=== PATIENT | female | born 1935 | race Two or more races ===

== ENCOUNTER 2024-08-09 16:48 | Emergency (ER) | payer MEDICARE, SELFPAY ==
[2024-08-09 16:55] VITALS: BP 155/72; PULSE 93; TEMP 36.9; O2SAT 98; BMI 24.8
--- NOTE | 2024-08-09 17:23 | XR_ITS ---
The [address] [address] Patient Name: DERRELL REDDY MRN: [id number] date: 1935 Sex: F Assigned Patient Location: ER Current Patient Location: Accession/Order Number: [id number] Exam Date: 08/09/2024 17:52 Report Date: 08/09/2024 19:49 At the request of: JACK QUINONES Procedure: XR chest 1V CXR HISTORY: Shortness of breath. COMPARISON: None. TECHNIQUE: 1 view of the chest submitted for review. FINDINGS: Lines and tubes: None Lungs are hyperaerated. No acute infiltrate. There is trace blunting of the left costophrenic angle. The cardiac silhouette measures within normal. Pulmonary vascularity is unremarkable. Osseous structures demonstrate postoperative changes of the right humerus. XR/XR chest 1V IMPRESSION: 1. Hyperexpanded lungs. Please correlate for COPD. 2. Blunting of the left costophrenic angle. Please correlate for small pleural effusion Electronically authenticated by: JCARLOS JAIN Date: 08/09/2024 19:49
--- NOTE | 2024-08-09 17:23 | ECG_ITS ---
The [facility] Test Date: 2024-08-09 Pat Name: DERRELL REDDY Department: Room: - Gender: Female [employer]agger: : 1935 Requested By: Order Number: [id number] Reading MD: SAGE QUINTANA Measurements Intervals [place] Rate: 87 P: 64 MO: 170 QRS: 47 QRSD: 66 T: 77 QT: 332 QTc: 377 Interpretive Statements 1100 Sinus rhythm 8102 Low QRS voltage in chest leads 9120 atypical ECG No previous ECG available for comparison Electronically Signed On 08-10-2024 7:43:10 EST by SAGE QUINTANA
[2024-08-09 17:34] LABS: Basophils Absolute Auto 0.1 10^3/uL (0.0-0.1); Basophils Percent Auto 0.8 % (0.2-2.0); Eosinophils Absolute Auto 0.2 10^3/uL (0.0-0.7); Eosinophils Percent Auto 2.4 % (0.9-7.0); Hematocrit 39.6 % (36.0-48.0); Hemoglobin 13.2 g/dL (12.0-16.0); Immature Granulocytes Abs Auto 0.03 10^3/uL (0.00-0.03); Immature Granulocytes Pct Auto 0.3 % (0.0-0.5); Lymphocytes Absolute Auto 1.9 10^3/uL (1.2-3.8); Lymphocytes Percent Auto 20.4 % (20.5-60.0); Mean Corpuscular HGB Conc 33.3 g/dL (29.9-35.2); Mean Corpuscular Hemoglobin 32.8 pg (26.7-34.0); Mean Corpuscular Volume 98.3 fL (81.0-99.0); Mean Platelet Volume 9.7 fL (9.5-13.5); Monocytes Absolute Auto 0.7 10^3/uL (0.3-0.8); Monocytes Percent Auto 7.5 % (1.7-12.0); Neutrophils Absolute Auto 6.5 10^3/uL (1.4-6.5); Neutrophils Percent Auto 68.6 % (43.0-75.0); Platelet Count 338 10^3/uL (150-450); Red Blood Count 4.03 10^6/uL (4.20-5.40); Red Cell Distribution Width 12.5 % (11.0-15.0); White Blood Count 9.5 10^3/uL (4.0-11.0)
[2024-08-09 17:45] LABS: Acetone NEGATIVE (NEGATIVE)
[2024-08-09 17:47] LABS: Alanine Aminotransferase 27 U/L (14-59); Albumin Globulin Ratio 1.1; Albumin Level 3.9 g/dL (3.4-5.0); Alkaline Phosphatase 81 U/L (46-116); Anion Gap 12.5; Aspartate Amino Transferase 15 U/L (15-37); BUN Creatinine Ratio 15.4; Bilirubin Total 0.2 mg/dL (0.2-1.0); Calcium 9.5 mg/dL (8.5-10.1); Carbon Dioxide 29.8 mmol/L (21.0-32.0); Chloride 104 mmol/L (98-107); Estimated GFR (African America 28 (>=60 mL/min/1.73m^2); Estimated GFR (Non-African Ame 23 (>=60 mL/min/1.73m^2); Globulin 3.4 g/dL; Glucose 161 mg/dL (74-106); Magnesium 2.2 mg/dL (1.8-2.4); Potassium 4.3 mmol/L (3.5-5.1); Sodium 142 mmol/L (136-145); Total Protein 7.3 g/dL (6.4-8.2)
[2024-08-09 17:48] LABS: Bilirubin Urine NEGATIVE (NEGATIVE); Blood Urine NEGATIVE (NEGATIVE); Clarity Urine CLEAR (CLEAR); Color Urine LT. YELLOW (YELLOW); Glucose Urine UA NEGATIVE (NEGATIVE); Ketones Urine NEGATIVE (NEGATIVE); Leukocyte Esterase Urine NEGATIVE (NEGATIVE); Nitrite Urine NEGATIVE (NEGATIVE); Protein Urine NEGATIVE (NEG/TRACE); Specific Gravity Urine <=1.005 (1.005-1.025); Urobilinogen Urine 0.2 EU/dL (0.2-1.0)
[2024-08-09] MEDS: HYDROXYZINE PAMOATE 25 MG CAPSULE PO (17:48)
[2024-08-09 17:49] VITALS: PULSE 88
--- NOTE | 2024-08-09 17:53 | ED_ITS ---
HPI HPI - General Adult General Chief complaint: Urogenital-Female Stated complaint: HIGH BLOOD SUGAR Time Seen by Provider: 08/09/24 16:55 Source: patient and family Mode of arrival: walk-in Limitations: no limitations History of Present Illness HPI narrative: 89-year-old female presents to the emergency department with daughters with concern about urinary tract infection. She was diagnosed with 1 by her provider and took 3-day course of antibiotics. Patient has been extremely anxious lately, has not slept in the past couple days due to worrying about her blood sugar levels. States her blood sugar has been as high as 201. Patient states she can feel when her blood sugar is elevating. She is on Januvia. Feels symptoms in her head. Has had increased urination, thirst. Ketones have been noticed in her urine. She has had some intermittent abdominal discomfort, none now. Complains of some shortness of breath, but attributes this to the anxiety she is feeling. She does take 0.5 mg of lorazepam as needed for anxiety, but states that this has not been helping. Denies any fever, chills, nausea, vomiting, chest pain, back pain, dysuria. Quality:?as above Severity:?moderate Timing:?as above, worsening Context: Normal setting and activity? Modifying factors:?none Associated symptoms: as above Related Data Home Medications ?Medication ?Instructions ?Recorded ?Confirmed amlodipine 5 mg tablet 5 mg PO DAILY 08/09/24 08/09/24 ashwagandha extract 120 mg capsule mg PO 08/09/24 aspirin 81 mg capsule 81 mg PO DAILY 08/09/24 08/09/24 cyanocobalamin (B12)-cobamamide argenis sublingual 08/09/24 5,000 mcg-100 mcg sublingual lozenge (B12) furosemide 40 mg tablet 40 mg PO DAILY 08/09/24 08/09/24 latanoprost 0.005 % eye drops 1 drp ophthalmic (eye) DAILY 08/09/24 08/09/24 lorazepam 0.5 mg tablet 0.5 mg PO Q8H PRN anxiety 08/09/24 08/09/24 melatonin 5 mg capsule mg 08/09/24 metoclopramide HCl 10 mg tablet 10 mg PO BID 08/09/24 08/09/24 rosuvastatin 10 mg tablet 10 mg PO DAILY 08/09/24 08/09/24 sitagliptin phosphate 50 mg tablet 50 mg PO DAILY 08/09/24 08/09/24 (Januvia) tizanidine 2 mg tablet 2 mg PO DAILY PRN muscle spasticity 08/09/24 08/09/24 Previous Rx's ?Medication ?Instructions ?Recorded hydroxyzine HCl 25 mg tablet 25 mg PO BID PRN anxiety #10 tabs 08/09/24 Allergies Allergy/AdvReac Type Severity Reaction Status Date / Time No Known Drug Allergies Allergy Verified 08/09/24 17:00 Opioid HPI Opioid Management Most Recent Opioid Data: No Data to Display Review of Systems ROS Narrative CONST: Denies fever, chills RESP: + shortness of breath with anxiety. Denies cough CV: Denies chest pain, palpitations GI: + intermittent abd pain, mid. Denies abd pain currently, nausea, vomiting : + urinary frequency. Denies dysuria, flank pain MS: Denies back pain, myalgias SKIN: Denies color change, rash NEURO: Denies numbness, weakness PSYCHIATRIC: + anxious, not sleeping. ENDO: + polyuria, polydipsia PFSH PFSH Social History Little interest or pleasure in doing things: nearly every day Feeling down, depressed, or hopeless: nearly every day Exam Narrative Exam Narrative: Vital signs reviewed Nurses notes noted CONST: Nontoxic, well appearing, well nourished, in no distress.? No diaphoresis.?? HENT: normocephalic, atraumatic, moist mucous membrane, no abnormalities of the nose noted, hearing normal EYES: normal appearing conjunctiva, no apparent discharge bilat NECK: normal appearance CV: normal rate, regular rhythm, no murmur RESP: normal effort, speaking in complete sentences. Lung sounds clear and equal bilat.? No wheezes, rales, rhonchi GI: normal bowel sounds, soft, no distension, nontender : no CVA tenderness MS: no edema, tenderness SKIN: no pallor NEURO: A&Ox 3, no focal findings PSYCH: + very anxious Constitutional Vital Signs, click to edit/add: Last Vital Signs Temp 98.4 F 08/09/24 16:55 Pulse 93 H 08/09/24 16:55 Resp 18 08/09/24 16:55 BP 155/72 H 08/09/24 16:55 Pulse Ox 98 08/09/24 16:55 O2 Del Method Room Air 08/09/24 16:55 Course Reevaluation(s) Reevaluation #1: Reports improvement of her anxiety. Discussed, at length with patient and daughters results, plan, and disposition. They are agreeable. Time: 19:03 Vital Signs Vital signs: Vital Signs Temperature 98.4 F 08/09/24 16:55 Pulse Rate 93 H 08/09/24 16:55 Respiratory Rate 18 08/09/24 16:55 Blood Pressure 155/72 H 08/09/24 16:55 Pulse Oximetry 98 08/09/24 16:55 Oxygen Delivery Method Room Air 08/09/24 16:55 Temperature 98.4 F 08/09/24 16:55 Pulse Rate 93 H 08/09/24 16:55 Respiratory Rate 18 08/09/24 16:55 Blood Pressure 155/72 H 08/09/24 16:55 Pulse Oximetry 98 08/09/24 16:55 Oxygen Delivery Method Room Air 08/09/24 16:55 Medical Decision Making MDM Narrative Medical decision making narrative: This is a pleasant 89-year-old female who presented to the emergency department with her daughters with concern about urinary tract infection, elevated blood sugars, anxiety, inability to sleep. She has been experiencing all of this over the past couple weeks. Has been on a 3-day course of antibiotics, but worries it was elevating her blood sugar. Daughters report highest her blood sugar had been was 201. She has had some increased thirst, urination. Denies any dysuria, chest pain, abdominal pain, headaches, dizziness. On arrival, a broad, stable. Exam, nontoxic, anxious appearing patient in no gross distress. Heart regular rate and rhythm. Lung sounds clear and equal bilaterally. Abdomen soft, nontender. IV access established, bloods drawn, patient was given some fluids. EKG performed which showed no acute or concerning changes Labs reveal no leukocytosis, anemia, thrombocytopenia, electrolyte imbalance. BUN 31, creatinine 2.01. Daughter had records from [facility] on her phone that showed BUN of 34 and creatinine up to 2.04 on 07/14/2024. Glucose today was 161. Bicarb 29. Negative for acetone. Urinalysis shows no evidence of glucose, ketones, infection, hematuria. Patient was given dose of hy droxyzine with overall improvement of her symptoms. Results and plan were discussed, at length with patient and daughters. This included creating a restful setting, dark room, avoiding television, possibly white noise, background music. They have follow-up appointment with their provider on Sunday. She will discuss this further with her follow-up provider as well as her elevated blood sugars. She also adds that she has been experiencing restless legs which will be addressed as well. Favor hyperglycemia, anxiety Acidosis, urinary tract infection less likely based on laboratory testing History and record review Discussion with independent historian: Daughters Additional records reviewed: Prior labs, see MDM narrative above Additional tests and interventions ECG: See below Reevaluation: See ED course above Disposition The patient was discharged. Plan: Patient will be discharged to home. Condition at time of disposition: stable Prescription for hydroxyzine sent to pharmacy Advised to follow up with primary provider. Advised to return for any worsening and/or development of new, concerning signs or symptoms PLEASE NOTE: Portions of the medical record may have been produced using electronic renal medicine physician and may contain errors with respect to translation of words which may not have been identified prior to finalization of the chart. Addendum on 08/09/2024 at 1936 hrs.: After discharge, nurse noticed that patient was given hydralazine instead of hydroxyzine. It had been ordered as hydralazine inadvertently. Upon discovery, patient was immediately called and voicemail message left. We then called the secondary number and spoke with both daughters. They have a blood pressure machine at home and they will monitor blood pressure. They are offered to return to the emergency department where we would monitor her blood pressure over the next couple hours. They declined this and stated that they will monitor her at home. They were instructed not to give any muscle relaxants or lorazepam over the next several hours. They are to return for such signs, symptoms including, but not limited to lightheadedness, presyncope, systolic blood pressures less than 100?110. They expressed understanding of this. Medical Records Medical records reviewed: Yes I reviewed the patient's medical records (See MDM narrative) Lab Data Lab results reviewed: Yes I reviewed the patient's lab results Labs: Lab Results 08/09/24 08/09/24 Range/Units 17:06 17:26 WBC 9.5 (4.0-11.0) 10^3/uL RBC 4.03 L (4.20-5.40) 10^6/uL Hgb 13.2 (12.0-16.0) g/dL Hct 39.6 (36.0-48.0) % MCV 98.3 (81.0-99.0) fL MCH 32.8 (26.7-34.0) pg MCHC 33.3 (29.9-35.2) g/dL RDW 12.5 (11.0-15.0) % Plt Count 338 (150-450) 10^3/uL MPV 9.7 (9.5-13.5) fL Neut % (Auto) 68.6 (43.0-75.0) % Lymph % (Auto) 20.4 L (20.5-60.0) % [place] % (Auto) 7.5 (1.7-12.0) % Eos % (Auto) 2.4 (0.9-7.0) % Baso % (Auto) 0.8 (0.2-2.0) % Neut # (Auto) 6.5 (1.4-6.5) 10^3/uL Lymph # (Auto) 1.9 (1.2-3.8) 10^3/uL [place] # (Auto) 0.7 (0.3-0.8) 10^3/uL Eos # (Auto) 0.2 (0.0-0.7) 10^3/uL Baso # (Auto) 0.1 (0.0-0.1) 10^3/uL Abs Immat Gran (auto) 0.03 (0.00-0.03) 10^3/uL Imm/Tot Granulo (auto) 0.3 (0.0-0.5) % Sodium 142 (136-145) mmol/L Potassium 4.3 (3.5-5.1) mmol/L Chloride 104 (98-107) mmol/L Carbon Dioxide 29.8 (21.0-32.0) mmol/L Anion Gap 12.5 BUN 31.0 H (7.0-18.0) mg/dL Creatinine 2.01 H (0.55-1.02) mg/dL Est GFR ( Amer) 28 L (>=60 mL/min/1.73m^2) Est GFR (Non-Af Amer) 23 L (>=60 mL/min/1.73m^2) BUN/Creatinine Ratio 15.4 Glucose 161 H (74-106) mg/dL Calcium 9.5 (8.5-10.1) mg/dL Magnesium 2.2 (1.8-2.4) mg/dL Total Bilirubin 0.2 (0.2-1.0) mg/dL AST 15 (15-37) U/L ALT 27 (14-59) U/L Alkaline Phosphatase 81 (46-116) U/L Total Protein 7.3 (6.4-8.2) g/dL Albumin 3.9 (3.4-5.0) g/dL Globulin 3.4 g/dL Albumin/Globulin Ratio 1.1 Urine Color Lt. yellow (YELLOW) Urine Clarity Clear (CLEAR) Urine pH 7.0 (5.0-9.0) Ur Specific [place] <=1.005 A (1.005-1.025) Urine Protein Negative (NEG/TRACE) mg/dL Urine Glucose (UA) Negative (NEGATIVE) mg/dL Urine Ketones Negative (NEGATIVE) mg/dL Urine Occult Blood Negative (NEGATIVE) Urine Nitrite Negative (NEGATIVE) Urine Bilirubin Negative (NEGATIVE) Urine Urobilinogen 0.2 (0.2-1.0) EU/dL Ur Leukocyte Esterase Negative (NEGATIVE) Urine RBC None seen (0-2) #/HPF Urine WBC None seen (NONE SEEN) #/HPF Ur Squamous Epith Cells Rare (NONE/RARE) #/LPF Ur Transition Epith Cell Rare A (NONE SEEN) #/LPF Urine Crystals None seen (None Seen) #/HPF Urine Bacteria Trace A (NONE SEEN) #/HPF Urine Casts None seen (NONE SEEN) #/LPF Urine Mucus None seen (NONE SEEN) Ur Culture Indicated? No Acetone, Qual Negative (NEGATIVE) ECG Data Attestation: I personally reviewed and interpreted this ECG as follows: (EKG performed at 1736 hrs. reveals sinus rhythm at 87 bpm. No STEMI, ectopy. Normal axis. No other additional acute or concerning changes present) Discharge Plan Discharge Chief Complaint: Urogenital-Female Clinical Impression: Anxiety, Hyperglycemia Patient Disposition: Home, Self-Care Time of Disposition Decision: 19:04 Condition: Good Mode of Transportation: Private Vehicle Prescriptions / Home Meds: New hydroxyzine HCl 25 mg tablet 25 mg PO BID PRN (Reason: anxiety) Qty: 10 0RF No Action lorazepam 0.5 mg tablet 0.5 mg PO Q8H PRN (Reason: anxiety) rosuvastatin 10 mg tablet 10 mg PO DAILY metoclopramide HCl 10 mg tablet 10 mg PO BID tizanidine 2 mg tablet 2 mg PO DAILY PRN (Reason: muscle spasticity) amlodipine 5 mg tablet 5 mg PO DAILY furosemide 40 mg tablet 40 mg PO DAILY aspirin 81 mg capsule 81 mg PO DAILY B12 5,000-100 mcg lozenge sublingual ashwagandha extract 120 mg capsule PO melatonin 5 mg capsule Januvia 50 mg tablet 50 mg PO DAILY latanoprost 0.005 % drops 1 drp OPHTHALMIC (EYE) DAILY Print Language: Slovenian Instructions: Anxiety (ED), Diabetic Hyperglycemia (ED) Referrals: Bell Martinez NP [Primary Care Provider] - 1 week Discharge Date/Time: 08/09/24 19:25
[2024-08-09 17:55] LABS: Bacteria Urine TRACE #/HPF (NONE SEEN); Cast Seen? NONE SEEN #/LPF (NONE SEEN); Crystals Seen? None Seen #/HPF (None Seen); Mucus Urine NONE SEEN (NONE SEEN); RBC Urine NONE SEEN #/HPF (0-2); Squamous Epithelial Cell Urine RARE #/LPF (NONE/RARE); Transitional Epi Cells Urine RARE #/LPF (NONE SEEN); Urine Culture Indicated NO; WBC Urine NONE SEEN #/HPF (NONE SEEN)
[2024-08-09] MEDS: HYDRALAZINE HCL 25 MG TABLET PO (19:21)
== END 2024-08-09 19:25 | disposition home or self-care (01) ==
PROVIDERS: Physician Assistant; Emergency Provider Emergency Medicine; PCP Nurse Practitioner Family
DX: F41.9 Anxiety disorder, unspecified (principal); R73.9 Hyperglycemia, unspecified; R06.02 Shortness of breath; N39.0 Urinary tract infection, site not specified
CPT/HCPCS: 36415; 71045; 80053; 81001; 82009; 83735; 85025; 93005; 99285; Q0177